=== PATIENT | male | born 1950 | race Caucasian/White ===

== ENCOUNTER → 2021-10-06 13:25 | Outpatient (CLI) | payer MEDICARE, SELFPAY ==
--- NOTE | ~2021-10-06 | XR_ITS ---
XR knee RT min 4V 10/06/2021 13:51 Indication: Right knee pain Procedure: 4 views right knee Comparison: No prior studies for comparison. Findings: There is anatomic alignment of the right knee. No fracture or traumatic malalignment. No si gnificant joint effusion. No foreign bodies. Impression: 1: No significant bone or joint abnormality. Reviewed, dictated and finalized at location B. Impression: 1: No significant bone or joint abnormality.
== END ==
PROVIDERS: PCP Family Medicine; Visit Provider Family Medicine
DX: M70.51 Other bursitis of knee, right knee (principal)
CPT/HCPCS: 73564